=== PATIENT | male | born 1975 | race African-American/Black ===

== ENCOUNTER 2017-03-21 18:10 | Emergency (ER) | payer OTHER ==
[~2017-03-21] VITALS: Ht 180.3 cm; Wt 72.6 kg
[~2017-03-21 18:10] MED LIST: AMOXICILLIN500 M1 PO; BACTRIM DS TABL1 TA1 PO; FLEXERIL10 MG PO; LORTAB 7.5-5001 TAB PO; NO MEDICATIONS; VICODIN 5/500 T1 TAB PO; VOLTAREN75 MG PO
== END 2017-03-21 19:16 | disposition home or self-care (01) ==
LOC: CFTX 18:10 → CED 18:10 → CFTX 19:00
DX: L02.11 Cutaneous abscess of neck (principal); F17.210 Nicotine dependence, cigarettes, uncomplicated; Z79.899 Other long term (current) drug therapy
CPT/HCPCS: 10060; 99283